=== PATIENT | male | born 1950 | race Caucasian/White ===

== ENCOUNTER 2024-05-21 08:43 | Emergency (ER) | payer MEDICARE, OTHER, SELFPAY ==
[2024-05-21 09:09] VITALS: BP 141/74
[2024-05-21 09:31] LABS: % Basophils 0.2 % (0-2); % Eosinophils 0.9 % (0-6); % Immature Granulocytes 0.5 % (0-0.5); % Lymphocytes 20.1 % (20.5-51.1); % Monocytes 5.7 % (1.7-9.3); % Neutrophils 72.6 % (42.2-75.2); Absolute Eosinophils 0.1 10^3/uL (0-0.7); Absolute Immature Granulocytes 0.1 10^3/uL (0-0.05); Absolute Lymphocytes 2.2 10^3/uL (1.2-3.4); Absolute Monocytes 0.6 10^3/uL (0.1-0.6); Hematocrit 48.3 % (39.0-52.0); Hemoglobin 15.7 g/dL (13.0-18.0); Mean Corp Hgb Conc. 32.5 g/dL (33.0-37.0); Mean Corpuscular Hgb 27.7 pg (27.0-31.0); Mean Corpuscular Volume 85.2 fL (80.0-94.0); Mean Platelet Volume 8.9 fL (7.4-10.4); Nucleated Red Blood Cells % 0 % (-); Platelet Count 265 10^3/uL (130-400); Red Blood Cell Count 5.67 10^6/uL (4.70-6.10); Red Cell Dist. Width 14.1 % (11.5-14.5)
[2024-05-21 09:45] LABS: ALT (SGPT) 20 U/L (0-50); AST (SGOT) 22 U/L (17-59); Albumin 4.2 g/dl (3.5-5.0); Alkaline Phosphatase 57 U/L (38-126); Blood Urea Nitrogen 20 mg/dl (9-20); Calcium 9.7 mg/dl (8.4-10.2); Carbon Dioxide 27 mmol/L (22-30); Chloride 104 mmol/L (98-107); Glucose 135 mg/dl (70-99); Lipase 197 U/L (23-300); Sodium 140 mmol/L (135-145); Total Bilirubin 0.6 mg/dl (0.2-1.3); Total Protein 6.8 g/dl (6.3-8.2); eGFR > 60.00
[2024-05-21 09:56] LABS: Troponin I 0.015 ng/ml
[2024-05-21 11:16] VITALS: BP 137/51
[2024-05-21 12:00] VITALS: BP 127/71
--- NOTE | 2024-05-21 12:21 | ED.GENMED ---
History of Present Illness
General
Chief Complaint: Chest Pain
Source: patient and spouse ( at bedside)
Exam Limitations: none
Time Seen by Provider: 05/21/24 11:46
Nursing documentation reviewed up to this point in time: agreed with
History of Present Illness
History of Present Illness:
Patient is a 73-year-old male with history hyperlipidemia, GERD presenting to the emergency department for evaluation of chest pain. Patient reports right-sided chest which he initially noticed yesterday evening while he was sitting on the couch.
Pain is much worse with deep inspiration. He also notices worsening with certain movements. He describes the pain as in his right lateral chest with some radiation into his right scapular region patient. He did have difficulty sleeping last night
due to discomfort. He has not noticed any true exertional component. Patient denies any associated shortness of breath, lower, dizziness, lower leg pain/swelling, abdominal pain.
Patient denies any recent travel or recent surgeries. Personal or family history of blood clots or clotting disorders. Patient denies any recent viral illnesses or cough. No fevers. No history of similar/pain.
Patient does have a significant family history of cardiac disease although himself has no known cardiovascular disease. He has never seen a newspaper peddler.
Past History
Past History
ED Past Medical History: Hypercholesterolemia and Hypothyroidism
ED Past Surgical History: Other (Noncontributory)
Social History
Tobacco: Non-smoker
Alcohol: Occasional
Drug: None
Personal:
Living: with family
Employment: Employed
Family History
Family History: Other
Review of Systems
Review of Systems
Allergies reviewed?: Yes
All Other Systems: ROS reviewed and negative except as documented in HPI and ROS
Phy Exam
Physical Exam
Physical Exam:
Vitals: Mildly hypertensive, otherwise vital signs are stable. Afebrile
General: Patient is well appearing, no acute distress
Skin: Warm and dry, no rashes or lesions
Head: Normocephalic, atraumatic
Eyes: Sclera nonicteric. EOMs intact. No nystagmus.
Throat: Protecting airway
Neck: Normal ROM, no cervical spine tenderness, no meningismus. No JVD
Cardiac: Mild reproducible tenderness to right lateral chest wall. Regular rate and rhythm, no murmurs.
Pulm: Normal respiratory effort, no wheezes, rales, rhonchi heard on exam. Oxygen saturation 99 on room air
Abdomen: Abdomen soft. No abdominal tenderness.
Extremities: No evidence of cyanosis or edema. Palpable DP pulses bilaterally. Negative Homans' sign bilaterally
Neuro: AAOx3. Grossly intact.
Psychiatric: Normal affect.
Scores
Heart Score for Chest Pain Patients
STEMI patient?: No
History: Slightly or Non-Suspicious
ECG: Normal
Age: >/= 65 years
Risk Factors: 1 or 2 Risk Factors
Troponin: </= Normal Limit
Heart Score for Chest Pain Patients: 3
Heart Score Risk: 2.5% MACE over next 6 weeks
Course
Orders/Labs/Results
Orders:
Orders
05/21/24 08:48
EKG- Treatment ONCE
05/21/24 08:49
Electrocardiogram (*1) Urgent
Reason for Study: Chest Pain
05/21/24 09:23
Complete Blood Count/With Diff Urgent
Comprehensive Metabolic Panel Urgent
Lipase Urgent
Troponin I Urgent
05/21/24 12:18
Electrocardiogram (*1) Urgent
Reason for Study: Chest Pain
EKG- Treatment ONCE
05/21/24 12:26
D-Dimer Urgent
Troponin I Urgent
05/21/24 12:50
CR Chest - 2 Views Urgent
Comment:
Reason For Exam: right sided chest pain
05/21/24 12:51
Ketorolac [Toradol] 15 mg IV NOW STA
Abnormal Lab Results
05/21/24
09:23
WBC 11.0 H 10^3/uL
(4.8-10.8)
MCHC 32.5 L g/dL
(33.0-37.0)
Abs Immat Gran (auto) 0.1 H 10^3/uL
(0-0.05)
Absolute Neuts (auto) 8.0 H 10^3/uL
(1.4-6.5)
Lymphocytes % 20.1 L %
(20.5-51.1)
Glucose 135 H mg/dl
(70-99)
05/21/24 09:23
05/21/24 09:23
Vital Signs
Initial and Last Documented VS:
Initial Vital Signs
Temp Pulse Resp BP Pulse Ox
98.0 F 66 18 141/74 99
05/21/24 09:09 05/21/24 09:09 05/21/24 09:09 05/21/24 09:09 05/21/24 09:09
Last Documented Vital Signs
Temp Pulse Resp BP Pulse Ox
98.0 F 54 24 128/76 98
05/21/24 09:09 05/21/24 14:15 05/21/24 14:15 05/21/24 14:00 05/21/24 13:00
MDM/Problems Addressed
Differential Diagnosis Includes:
Not limited to: Muscular strain, costochondritis, pleurisy, acute coronary syndrome, pulmonary embolism, zoster, etc.
MDM/Problems Addressed:
73-year-old male presenting with right upper chest discomfort since yesterday. Symptoms worse with both movement and deep inspiration. However�no exertional component to pain. No known inciting injury. No associated shortness of breath,
dizziness/lightheadedness, tearing back pain, diaphoresis. Patient has stable vital signs on arrival. On exam�patient is well-appearing, in no apparent distress. There is reproducible tenderness to right lateral chest wall without any overlying
ecchymoses or rash. EKG was obtained without any acute ischemic changes. Basic labs initiated in triage without any clinically significant abnormalities. Initial troponin negative. Differential broad although given reproducible nature�higher
suspicion for musculoskeletal cause. Will obtain D-dimer to rule out PE given pleuritic nature of pain. Will trend troponin. Toradol given for pain management. Will closely monitor and reassess.
Update: Fortunately D-dimer was undetectable. Repeat troponin undetectable, as well. A chest x-ray was obtained without any acute abnormalities. On reassessment�patient with improvement in symptoms following Toradol which would also point towards
a likely musculoskeletal cause. At this point�very low suspicion for acute coronary syndrome or acute cardiac process. Suspect musculoskeletal in origin. However�given family history will recommend cardiology follow-up in future for baseline
assessment and evaluation. Return precautions discussed at length and information given for cardiology. Patient stable for discharge with outpatient management. Case discussed with attending physician.
Chronic conditions affecting care:
N/A
Acute Exacerbation and/or Progression of Chronic Illness:
N/A
*Radiology
Radiology exam reviewed: preliminary read by ED provider and radiology read reviewed
*Pulse Oximetry
Patient hypoxic: no
*EKG
Interpreted by ED Provider?: Yes
EKG Intrepretation Date: 05/21/24
Interpretation: normal
Comparison EKG: no changes
Heart Rate: 55
Rate: bradycardiac
Rhythm: sinus
[place]: normal axis
Interval: normal QT interval
QRS Pattern: normal QRS
Ischemia: no ischemia
*Stakes Player Interpretation
Rate: normal
Interpretation: normal
Heart Rate: 64
Rhythm: sinus
*Critical Care Note
Total Time (30-74mins, 75-104mins- exclusive of procedures): Not Applicable
ED Attending Note
-
Portions of this chart may have been created with voice recognition software.� Occasional wrong word or��sound alike� substitutions may have occurred due to the inherent limitations of voice recognition software.
Discharge Plan
Departure
Patient Disposition: Home (Routine Discharge)
Date of Disposition: 05/21/24
Time of Disposition: 14:08
Patient with high blood pressure during this ER visit?: No
Condition: Good
Covid-19: Not Applicable
Discharge Problem:
Chest pain
Instructions: Pleuritic Chest Pain ED, Chest Pain PCP Follow Up, Chest Pain
Prescriptions:
No Action
Sudafed
10 mg PO DAILYPRN PRN (Reason: nasal congestion)
Patient Comments:
5 weeks ago
atorvastatin 20 MG tablet
1 tab PO HS
levothyroxine 75 MCG tablet
75 mcg PO DAILY
cephalexin [Keflex] 500 MG capsule
500 mg PO Q6 4 Days Qty: 16 0RF
oxycodone 5 MG tablet
5 mg PO Q4HPRN PRN (Reason: moderate-severe pain) Qty: 35 0RF
Rx Instructions:
1 tab moderate pain or 2ifp ain severe
dx lami
ongoing therpay
Referrals:
Aramis Arcos DO [Active] - Next open appointment
Angelina Garcia MD [Family Provider] - Follow up in 2-3 days
Activity Restrictions/Additional Instructions:
RETURN TO THE EMERGENCY DEPARTMENT WITH ANY WORSENING CHEST PAIN OR CHEST PAIN MADE WORSE WITH EXERTION AND/OR ASSOCIATED WITH SHORTNESS OF BREATH, LIGHTHEADEDNESS/DIZZINESS, SEVERE BACK PAIN, SWEATING, OR ANY OTHER CONCERNS
-You came to the emergency department today for evaluation of chest pain. I suspect this is likely musculoskeletal in origin.
-Take it easy over the next few days. Stable hydrated. You can continue to take Motrin and/or Tylenol as needed for discomfort. Try and limit movements that further aggravate pain.
-As discussed�it is importantly follow-up with your primary care in a few days to ensure the symptoms are improving/for further evaluation. You should also schedule an appointment with a newspaper peddler for a baseline evaluation given your family
history.
Monitor your symptoms closely and return to the emergency department any acute worsening/new symptoms or any other concerns
Interventions
Interventions:
*Risk Screen - Suicide Last Done: 05/21/24 09:09
*General Assessment Last Done: 05/21/24 09:09
*Neglect/Abuse Screening Last Done: 05/21/24 09:09
ED- Fall Risk Assessment Last Done: 05/21/24 11:18
*ED COVID-19 Vaccine History Last Done: 05/21/24 09:09
*Nursing Disposition Last Done: 05/21/24 14:17
ED- Cardiac Assessment Last Done: 05/21/24 11:18
Discharge Date and Time
Discharge Date/Time: 05/21/24 14:23
Print Language: SPANISH
[2024-05-21 12:43] LABS: D-Dimer < 0.27 ug/mlFEU (0.00-0.50)
[2024-05-21 12:53] LABS: Troponin I < 0.012 ng/ml
[2024-05-21] MEDS: TORADOL 15 MG IV (12:59)
[2024-05-21 13:00] VITALS: BP 128/68
[2024-05-21 14:00] VITALS: BP 128/76
== END 2024-05-21 14:23 | disposition home or self-care (01) ==
LOC: EMR 08:43
PROVIDERS: Physician Assistant; EMERGENCY PHYSICIAN Emergency Medicine; FAMILY PHYSICIAN Internal Medicine
DX: R07.89 Other chest pain (principal); E78.00 Pure hypercholesterolemia, unspecified; E03.9 Hypothyroidism, unspecified; K21.9 Gastro-esophageal reflux disease without esophagitis
CPT/HCPCS: 99285; 96374; 71046; 80053; 83690; 84484; 85025; 85379; 93005

== ENCOUNTER 2024-06-15 07:22 | Outpatient (RCR) | payer MEDICARE, OTHER, SELFPAY | END 2024-06-15 23:59 | disposition home or self-care (01) | LOC: RPT 07:22 | PROVIDERS: ATTENDING PHYSICIAN Nurse Practitioner Family; FAMILY PHYSICIAN Internal Medicine | DX: M25.522 Pain in left elbow (principal); M77.8 Other enthesopathies, not elsewhere classified; Z73.6 Limitation of activities due to disability | CPT/HCPCS: 97010; 97110; 97140; 97162 ==

== ENCOUNTER → 2024-07-06 14:03 | Outpatient (REF) | payer MEDICARE, OTHER, SELFPAY | LOC: RCS 14:03 | PROVIDERS: ATTENDING PHYSICIAN Internal Medicine Cardiovascular Disease; FAMILY PHYSICIAN Internal Medicine | DX: R07.89 Other chest pain (principal) | CPT/HCPCS: 93017 ==

== ENCOUNTER 2024-07-13 06:28 | Outpatient (RCR) | payer MEDICARE, OTHER, SELFPAY | END 2024-07-13 23:59 | disposition home or self-care (01) | LOC: RPT 06:28 | PROVIDERS: ATTENDING PHYSICIAN Nurse Practitioner Family; FAMILY PHYSICIAN Internal Medicine | DX: M25.522 Pain in left elbow (principal); M77.8 Other enthesopathies, not elsewhere classified; Z73.6 Limitation of activities due to disability | CPT/HCPCS: 97010; 97110; 97140 ==

== ENCOUNTER → 2024-07-13 13:47 | Outpatient (REF) | payer MEDICARE, OTHER, SELFPAY | LOC: RCS 13:47 | PROVIDERS: ATTENDING PHYSICIAN Internal Medicine Cardiovascular Disease; FAMILY PHYSICIAN Internal Medicine | DX: R07.89 Other chest pain (principal) | CPT/HCPCS: 93306 ==

== ENCOUNTER 2024-08-01 06:15 | Day surgery (SDC) | payer MEDICARE, OTHER, SELFPAY ==
[2024-07-27 10:45] VITALS: BMI 26.0
[2024-08-01] VITALS (17 sets, daily range): BP systolic 102–148; BP diastolic 60–109
[2024-08-01] MEDS: NSS 254 ML IV (06:55)
[2024-08-01] MEDS: LOW STRENGTH ASPIRIN 81 MG PO (07:11)
--- NOTE | 2024-08-01 08:31 | ITS.CL.CATH ---
[employer] Professional - Catheterization
Cardiac Catheterization
Procedure Report:
CARDIAC CATHETERIZATION REPORT
Date of Procedure: 08/01/2024
Referring: Aramis Arcos D.O.
INDICATION: Atypical chest pain at rest, abnormal stress test.
PROCEDURE:
1. Left heart catheterization.
2. Coronary angiography.
A total of 25 minutes of procedural/moderate sedation was utilized. An independent medical and health services manager was present to assist with and help manage the patient's level of consciousness and physiologic status.
ACCESS:
1. 6 [place] right radial artery using a modified Seldinger technique.
CATHETERS:
1. 5 [place] JR4.
2. 5 [place] JL 3.5.
HEMODYNAMIC DATA
Weight (kg): 84.5
AO (s/d/x, mmHg): 115/64/86
LV (s/x mmHg): 119/12
LEFT VENTRICULOGRAPHY: Not performed.
CORONARY ANGIOGRAPHY
Dominance: Right.
Left Main: Short, bifurcating vessel. There is no coronary artery disease.
LAD: Normal size vessel giving rise to 3 diagonals. The first diagonal is a relatively small vessel, less than 1 mm in diameter. The second diagonal is a medium size vessel. The third diagonal arises approximately 10 mm distal to the second
diagonal and is a smaller vessel, approximately 2 mm in diameter. There are minor luminal irregularities in the proximal LAD. 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
[place]: Congenitally absent.
Circumflex: Large size, nondominant vessel giving rise to 1 large obtuse marginal before terminating as a left posterolateral branch. The distal obtuse marginal severely tortuous.
RCA: Normal size, dominant vessel with a high, anterior origin. There is no coronary artery disease.
INTERVENTION(S)
None.
Closure Device: Vascular band.
Radiation (mGy): 435.61
DAP (cm2.Gy): 36.2921
Fluoroscopy time (minutes): 3.2
CONCLUSIONS
1. 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
2. Normal filling pressures (LVEDP = 12 mmHg at 84.5 kg.
3. False positive stress test.
RECOMMENDATIONS:
1. Expectant management after cardiac catheterization via right radial approach.
2. Limited weight bearing on the right wrist for one week.
3. Aggressive primary prevention with high-dose, high potency statin. Goal LDL <55.
4. Start a trial of PPI for possible GERD/esophageal spasm.
Copy to: Aramis Arcos D.O., Angelina Garcia M.D.
Aramis Arcos DO, FACC, FACP
[2024-08-01] MEDS: NSS 1000 IV (08:50)
== END 2024-08-01 11:29 | disposition home or self-care (01) ==
LOC: CATH 06:15
PROVIDERS: ATTENDING PHYSICIAN Internal Medicine Cardiovascular Disease; FAMILY PHYSICIAN Internal Medicine
DX: R07.9 Chest pain, unspecified (principal); R94.39 Abnormal result of other cardiovascular function study; I10 Essential (primary) hypertension; E78.5 Hyperlipidemia, unspecified; E03.9 Hypothyroidism, unspecified; K21.9 Gastro-esophageal reflux disease without esophagitis; G47.33 Obstructive sleep apnea (adult) (pediatric); M19.90 Unspecified osteoarthritis, unspecified site; Z79.82 Long term (current) use of aspirin
CPT/HCPCS: 93458; C1894; Q9967